=== PATIENT | female | born 1995 | race African-American/Black ===

== ENCOUNTER 2020-05-28 23:46 | Emergency (ER) | payer OTHER ==
[~2020-05-28] VITALS: Ht 157.5 cm; Wt 59.2 kg
[2020-05-28 23:47] VITALS: BP 144/81
[2020-05-29] MEDS ORDERED: diphenhydrAMINE 25MG CAP PO ONE (00:55)
== END 2020-05-29 01:21 | disposition home or self-care (01) ==
LOC: M ED 23:46
DX: R07.0 Pain in throat (principal); F17.290 Nicotine dependence, other tobacco product, uncomplicated

== ENCOUNTER 2020-06-26 11:48 | Emergency (ER) | payer OTHER ==
[~2020-06-26] VITALS: Ht 160 cm; Wt 56.8 kg
[2020-06-26 14:38] LABS: BASO # 0.1 10^3/uL (0.0-0.2); BASO % 0.9 % (0.0-1.0); EOS # 0.1 10^3/uL (0.0-0.5); EOS % 1.5 % (0.0-3.0); HEMATOCRIT 45.5 % (36.0-47.0); HEMOGLOBIN 14.7 g/dl (12.0-15.5); LYMPH % 37.5 % (24.0-44.0); MEAN CORPUSCULAR HEMOGLOBIN 28.1 pg (27.0-33.0); MEAN CORPUSCULAR HGB CONC 32.3 g/dl (32.0-36.5); MONO # 0.4 10^3/uL (0.0-0.8); MONO % 8.1 % (2.0-8.0); NEUTROPHILS # 2.8 10^3/uL (1.5-8.5); NEUTROPHILS % 51.8 % (36.0-66.0); PLATELET COUNT, AUTOMATED 427 10^3/uL (150-450); RED BLOOD COUNT 5.23 10^6/uL (4.00-5.40); WHITE BLOOD COUNT 5.4 10^3/uL (4.0-10.0)
[2020-06-26 15:06] LABS: BLOOD UREA NITROGEN 8 MG/DL (7-18); CALCIUM LEVEL 9.9 MG/DL (8.5-10.1); CARBON DIOXIDE LEVEL 26 MEQ/L (21-32); CHLORIDE LEVEL 103 MEQ/L (98-107); CK-MB VALUE MASS < 1.0 NG/ML (<3.6); CPK CREATINE PHOSPHOKINASE 84 U/L (26-192); CREATININE FOR GFR 0.87 MG/DL (0.55-1.30); GLOMERULAR FILTRATION RATE > 60.0 (>60); GLUCOSE, FASTING 88 MG/DL (70-100); MB/CK RELATIVE INDEX 1.19 (< OR =4); SODIUM LEVEL 138 MEQ/L (136-145); TROPONIN I < 0.02 NG/ML (< 0.10)
--- NOTE | 2020-06-26 15:22 | REP ---
INDICATION: cp yesterday, resolved now COMPARISON: None. TECHNIQUE: PA/Lateral FINDINGS: Lungs: Clear, no infiltrate. Heart: Normal in size. Mediastinum: Mediastinal silhouette unremarkable. Pleural angles: Unremarkable.. Bones and soft tissues: Unremarkable. IMPRESSION: No acute pulmonary disease. <Electronically signed by Trae Barrett > 06/26/20 [id number]
[2020-06-26] MEDS ORDERED: OMEP40CA97 PO (15:51)
[2020-06-26 16:20] VITALS: BP 121/74
--- NOTE | 2020-06-27 17:53 | ECGEPIP ---
[facility] - ED Test Date: 2020-06-26 Pat Name: ANTONY CAMEJO Department: Room: - Gender: Female [employer] Administrator: SEKOU : 1995 Requested By: SONY Florez PA-C Order Number: [id number] Reading MD: Betty Swanson Measurements Intervals [place] Rate: 70 P: 53 RI: 160 QRS: 67 QRSD: 68 T: 43 QT: 370 QTc: 399 Interpretive Statements Normal sinus rhythm ST elevation, probably due to early repolarization no prior Electronically Signed on 06-27-2020 17:53:32 EDT by Betty Swanson
== END 2020-06-26 16:20 | disposition home or self-care (01) ==
LOC: M ED 11:48
DX: K21.9 Gastro-esophageal reflux disease without esophagitis (principal); R07.0 Pain in throat

== ENCOUNTER 2020-11-03 21:17 | Emergency (ER) | payer OTHER ==
[~2020-11-03] VITALS: Ht 157.5 cm; Wt 53.9 kg
[~2020-11-03 21:17] MED LIST: OMEP40CA4 PO
[2020-11-03] MEDS ORDERED: PROT1TAB2 PO (21:54)
[2020-11-04 06:01] VITALS: BP 121/73
== END 2020-11-04 06:03 | disposition home or self-care (01) ==
LOC: M ED 21:17
DX: R09.89 Other specified symptoms and signs involving the circulatory and respiratory systems (principal); K21.9 Gastro-esophageal reflux disease without esophagitis